=== PATIENT | female | born 1955 | race African-American/Black ===

== ENCOUNTER 2022-02-02 12:03 | Emergency (ER) | payer MEDICAID ==
[~2022-02-02] VITALS: Ht 160 cm; Wt 52.0 kg
[~2022-02-02 12:03] MED LIST: ASPI81TA47; GABA-532; IBUP-2030; LORATIDINE; TRAM50TA3; VIC
[2022-02-02] MEDS ORDERED: LIDOCAINE 5% PATCH TOP SCH (16:00)
[2022-02-02] MEDS ORDERED: GABAPENTIN 300MG CAPSULE PO ONE (16:00)
[2022-02-02] MEDS ORDERED: HYDROCODONE/ACETAMINOPHEN 5/325MG TABLET PO ONE (16:00)
[2022-02-02 16:19] VITALS: BP 132/93
[2022-02-02] MEDS ORDERED: HYDR-4001 MT (17:46)
[2022-02-02] MEDS ORDERED: GABA-532 MT (17:46)
== END 2022-02-02 18:05 | disposition home or self-care (01) ==
LOC: ER 12:03
DX: M54.59 Other low back pain (principal); Z76.0 Encounter for issue of repeat prescription
CPT/HCPCS: 99284

== ENCOUNTER 2022-06-15 16:44 | Emergency (ER) | payer MEDICARE, MEDICAID ==
[~2022-06-15] VITALS: Ht 154.9 cm; Wt 48.0 kg
[~2022-06-15 16:44] MED LIST changes: +GABA-532 MT; +HYDR-4001 MT
[2022-06-15 16:52] VITALS: BP 126/85
[2022-06-15] MEDS ORDERED: HYDROCODONE/ACETAMINOPHEN 5/325MG TABLET PO ONE (22:30)
[2022-06-15] MEDS ORDERED: CYCLOBENZAPRINE 10MG TABLET PO ONE (22:30)
[2022-06-15] MEDS ORDERED: AZIT500T8 MT (23:32)
[2022-06-15] MEDS ORDERED: CYCL10TA21 MT (23:32)
== END 2022-06-16 00:01 | disposition home or self-care (01) ==
LOC: ER 17:04
DX: G89.29 Other chronic pain (principal); M54.50 Low back pain, unspecified; R05.9 Cough, unspecified; R50.9 Fever, unspecified; J44.9 Chronic obstructive pulmonary disease, unspecified; I10 Essential (primary) hypertension; Z98.51 Tubal ligation status; Z79.899 Other long term (current) drug therapy
CPT/HCPCS: 71045; 99283

== ENCOUNTER 2025-06-19 16:48 | Emergency (ER) | payer MEDICARE, MEDICAID ==
[~2025-06-19] VITALS: Ht 167.6 cm; Wt 50.0 kg
[~2025-06-19 16:48] MED LIST changes: +CYCL10TA21 MT; +GABA-1180; +GABA-1180 MT; -GABA-532; -GABA-532 MT
[2025-06-19 17:06] VITALS: O2SAT 94
[2025-06-19] MEDS: IBUPROFEN 800MG TABLET PO ONE (17:50)
[2025-06-19 22:50] VITALS: BP 148/68; PULSE 76; RESP 21; TEMP 36.9; O2SAT 99
== END 2025-06-19 22:50 | disposition home or self-care (01) ==
LOC: ER 16:48
DX: S01.01XA Laceration without foreign body of scalp, initial encounter (principal); Z79.899 Other long term (current) drug therapy; Y09 Assault by unspecified means; Y93.89 Activity, other specified; Y92.89 Other specified places as the place of occurrence of the external cause; Y99.8 Other external cause status
CPT/HCPCS: 12001; 99285